=== PATIENT | female | born 1975 | race Caucasian/White ===

== ENCOUNTER 2022-12-09 21:03 | Emergency (ER) | payer MEDICAID ==
[~2022-12-09] VITALS: Ht 154.9 cm; Wt 86.2 kg
--- NOTE | 2022-12-09 21:30 | NUR ---
Dr. Black evaluated patient at bedside. MSE in progress.
[2022-12-09] MEDS ORDERED: ACET1TAB23 PO (21:39)
[2022-12-09] MEDS ORDERED: ACYC-108 PO (21:39)
--- NOTE | 2022-12-09 21:47 | NUR ---
Patient discharged to home in stable condition. Written and verbal after care instructions given. Patient verbalizes understanding of instructions. Stressed follow up or return to ER for worsening s/s. Handed patient printed medication prescriptions.
[2022-12-09 21:48] VITALS: BP 133/81
== END 2022-12-09 21:49 | disposition home or self-care (01) ==
LOC: ER 21:05
DX: B02.9 Zoster without complications (principal); Z79.899 Other long term (current) drug therapy
CPT/HCPCS: A4663

== ENCOUNTER 2023-12-21 11:58 | Emergency (ER) | payer MEDICAID, OTHER ==
[~2023-12-21] VITALS: Ht 160 cm; Wt 90.7 kg
[~2023-12-21 11:58] MED LIST: ACET1TAB23 PO; ACYC-108 PO
[2023-12-21 14:08] LABS: *URINE HCG, QUAL NEGATIVE (NEGATIVE)
[2023-12-21] MEDS ORDERED: IBUP-1957 PO (15:34)
[2023-12-21 15:40] VITALS: BP 140/80; O2SAT 100
== END 2023-12-21 15:40 | disposition home or self-care (01) ==
LOC: ER 11:59
DX: M54.16 Radiculopathy, lumbar region (principal); R10.2 Pelvic and perineal pain; R22.42 Localized swelling, mass and lump, left lower limb; Z79.1 Long term (current) use of non-steroidal anti-inflammatories (NSAID); Z79.899 Other long term (current) drug therapy
CPT/HCPCS: 72131; 84703; A4606; A4663